=== PATIENT | female | born 1975 | race Caucasian/White ===

== ENCOUNTER → 2018-12-24 10:12 | Outpatient (CLI) | payer BC, OTHER ==
[~2018-12-24 10:12] MED LIST: DIOVAN80 MG PO; METFORMIN HCL500 M1 PO
[2018-12-31 07:51] VITALS: BMI 108.8
--- NOTE | 2019-01-05 10:38 | ST ---
PATIENT:RHEA MELLO MEDICAL RECORD: [id number] SEX: F LOCATION:[facility] ORDER #: ADMISSION DATE: 12/24/18 AGE OF PATIENT: 43 REFERRING PHYSICIAN: INTERPRETING PHYSICIAN: BUCK CORBIN MD DATE OF SERVICE: 12/24/2018 PROCEDURE: Nuclear stress test. INDICATIONS: Chest pain, hypertension, diabetes. The patient was exercised on a standard Jeff protocol for 5 minutes, terminated due to achievement of max target heart rate response with 33 mCi of sestamibi injected at peak stress, 11 mCi were used previously for rest images. FINDINGS: Gated SPECT reveals preserved ejection fraction greater than 50% with good wall motioning and thickening and brightening throughout all segments. SPECT imaging: Cardiolite was used as myocardial perfusion agent. There are reversible changes anteriorly that includes basal, mid, apical, anterior segments. The degree of reversibility is moderate. The amount of myocardium involved is moderate. OVERALL IMPRESSION: 1. This is an abnormal nuclear stress test. Reversible ischemia anteriorly. 2. Gated SPECT reveals preserved ejection fraction greater than 50%. In this patient with ongoing symptomatology, the current scan does suggest the presence of hemodynamically significant coronary artery disease. We will proceed with coronary angiography as a followup study. TRANSINT:[id number] Voice Confirmation ID: [id number] DOCUMENT ID: [id number] BUCK CORBIN MD at 1038 CC: SARAH MARTINEZ [id number] DICTATION DATE: 12/24/18 1350 DISULFURIZER TENDER: 12/25/18 0558 DEP CLI 12/24/18 [place] [id number]
== END | disposition home or self-care (01) ==
LOC: D.HCCARDIO 10:00
PROVIDERS: ATTEND Internal Medicine Interventional Cardiology
DX: R07.9 Chest pain, unspecified (principal)